=== PATIENT | female | born 1955 | race Caucasian/White ===

== ENCOUNTER 2017-07-14 21:03 | Emergency (ER) | payer BC ==
[~2017-07-14] VITALS: Ht 154.9 cm; Wt 77.6 kg
[2017-07-14 21:23] VITALS: Ht 154.9 cm; Wt 77.6 kg
[2017-07-15 02:19] VITALS: BP 135/82
== END 2017-07-15 02:19 | disposition home or self-care (01) ==
LOC: ED 21:03
DX: S30.0XXA Contusion of lower back and pelvis, initial encounter (principal); S20.20XA Contusion of thorax, unspecified, initial encounter; I10 Essential (primary) hypertension; M25.562 Pain in left knee; V89.2XXA Person injured in unspecified motor-vehicle accident, traffic, initial encounter; Y93.89 Activity, other specified; Y92.89 Other specified places as the place of occurrence of the external cause; Y99.8 Other external cause status
CPT/HCPCS: 72072; J1885